=== PATIENT | male | born 1990 | race Caucasian/White ===

== ENCOUNTER 2019-02-24 12:30 | Day surgery (SDC) | payer OTHER ==
[2019-02-23 10:28] VITALS: BMI 23.6
[2019-02-24] MEDS ORDERED: Midazolam HCl 2 mg/2 ml Vial ONE (13:31)
[2019-02-24] MEDS ORDERED: Fentanyl 100 MCG/2 ML VIAL ONE ×2 (13:31→16:09)
[2019-02-24] MEDS ORDERED: Bupivacaine PF 0.5% 30 ML VIAL ONE (16:10)
[2019-02-24] MEDS ORDERED: Meperidine HCl/PF 25 MG/ML VIAL ONE (18:20)
[2019-02-24] MEDS ORDERED: Morphine 4 MG/ML VIAL ONE (18:44)
[2019-02-24] MEDS ORDERED: Non-Formulary Medication 1 EACH PO PRN (18:50)
[2019-02-24] MEDS ORDERED: Ondansetron HCl/PF 4 MG/2 ML Vial IVP PRN (18:50)
[2019-02-24] MEDS ORDERED: Meperidine HCl/PF 25 MG/ML VIAL IV PRN (18:50)
[2019-02-24] MEDS ORDERED: PACU-Morphine 4MG/ML VIAL SLOW IVP PRN (18:50)
[2019-02-24] MEDS ORDERED: Promethazine HCl 25 MG/ML VIAL IM/IV PRN (18:50)
[2019-02-24] MEDS ORDERED: HYDROcodone/Acetaminophen 5/325 mg Tablet ONE ×2 (19:16)
[2019-02-24] MEDS ORDERED: Ondansetron ODT 4 MG TAB ONE (19:50)
--- NOTE | 2019-02-24 20:06 | RAD ---
Right clavicle, 2 view Indication ORIF FINDINGS: Plate and screw fixation of right clavicle demonstrated, by intraoperative fluoroscopic dajuan ging. IMPRESSION: Intraoperative imaging for ORIF of right clavicle. Transcribed Date/Time: 02/24/2019 8:31 PM
--- NOTE | 2019-02-25 10:36 | OP ---
DATE OF PROCEDURE: 02/24/2019 PREOPERATIVE DIAGNOSIS: Right clavicle fracture, closed. POSTOPERATIVE DIAGNOSIS: Right clavicle fracture, closed. SURGICAL PROCEDURE: Open reduction and internal fixation of right clavicle. ANESTHESIA: General. KEYPUNCHER: Cyndi García PA-C ESTIMATED BLOOD LOSS: 50 mL. IMPLANTS: Synthes 7 hole curved superior 3.5 mm LCP clavicle plate. COMPLICATIONS: None. DRAINS: None. SPECIMEN: None. OUTCOME: Near-anatomic alignment. INDICATIONS FOR PROCEDURE: The patient is a 28-year-old gentleman, who is now about 5 weeks post right clavicle fracture. We initially decided to treat this nonsurgically as there was only approximately 1 cm of shortening. The patient has been extremely active with his shoulder, has not been restricting his activities and on followup is found to have shortening now of 2.5 cm with absolutely no evidence of healing. Given this excessive shortening, we have now decided to proceed with open reduction and internal fixation in hopes of restoring normal anatomy to hopefully prevent scapular dyskinesis and shoulder dysfunction. Informed consent has been obtained. I believe all questions answered. DESCRIPTION OF PROCEDURE: The patient was brought to the operating room and a time-out performed followed by induction of general anesthesia. He was placed in a semi-beach chair position and a sterile prep and drape was performed of the right upper extremity and anterior chest wall. Next, a curvilinear incision was made over riding the clavicle after skin was sharply incised. Dissection was carried down bluntly and a standard anterior approach to the clavicle was performed. The fracture was found to have attempts at healing, but there was no bridging callus noted whatsoever. Some dysfunctional callus was excised sharply. Next, the ends of the fracture were freed of soft tissue in the callus and then a drill used to open up the intramedullary canal both medial and lateral aspects of the fracture to get bleeding at the fracture site. At the completion of this, the fracture was reduced, held in place with a bone tenaculum. Then an anterior to posterior interfragmentary screw was applied in standard fashion. This was then followed by application of a 7 hole curved clavicular plate to the superior cortex of the clavicle. This held in place with a total of 6 screws, 3 medial and 3 lateral to the fracture. At the completion of this, 2 view clavicle x-ray was obtained in the operating room showing anatomic alignment. The wound was then irrigated with bulb syringe, then closed in layers with 0 Vicryl for fascial closure followed by 2-0 Vicryl subcutaneously and kerry for the skin. Xeroform gauze and tape dressing was applied to the shoulder and then the patient was transferred to recovery room in stable condition. There were no complications. He tolerated the procedure well. Job ID: [id number]
== END 2019-02-24 20:35 | disposition home or self-care (01) ==
LOC: SDC 12:30
PROVIDERS: ATTEND Orthopaedic Surgery
PROC: 0PS904Z Reposition Right Clavicle with Internal Fixation Device, Open Approach (ICD-10-PCS; principal; 2019-02-24)
DX: S42.021A Displaced fracture of shaft of right clavicle, initial encounter for closed fracture (principal); F41.9 Anxiety disorder, unspecified; F17.210 Nicotine dependence, cigarettes, uncomplicated; V86.59XA Driver of other special all-terrain or other off-road motor vehicle injured in nontraffic accident, initial encounter
CPT/HCPCS: 76000; 93005; 93010; J0690; J2175; J2250; J2270; J3010; Q0162; S0020